=== PATIENT | male | born 1955 | race Caucasian/White ===

== ENCOUNTER 2017-10-14 10:36 | Emergency (ER) | payer OTHER ==
[~2017-10-14] VITALS: Ht 177.8 cm; Wt 79.4 kg
[2017-10-14] MEDS ORDERED: MEDROLPACK PO (12:07)
[2017-10-14] MEDS ORDERED: DICLOFENAC SODI50 MG PO (12:07)
== END 2017-10-14 13:03 | disposition home or self-care (01) ==
LOC: ER 10:36
DX: M54.5 Low back pain (principal)